=== PATIENT | female | born 1940 | race Two or more races ===

== ENCOUNTER 2017-08-29 20:04 | Inpatient (IN) | payer MEDICARE, OTHER ==
[~2017-08-29] VITALS: Ht 162.6 cm; Wt 62.1 kg
[2017-08-29] MEDS ORDERED: ESCI5TAB PO (20:33)
[2017-08-29] MEDS ORDERED: CLOP75TA2 PO (20:33)
[2017-08-29] MEDS ORDERED: VALS1TAB52 PO (20:33)
[2017-08-29] MEDS ORDERED: MULT1TAB73 PO (20:33)
[2017-08-29] MEDS ORDERED: ACET-868 PO (20:33)
[2017-08-29] MEDS ORDERED: AMLO10TA4 PO (20:33)
[2017-08-29] MEDS ORDERED: CILO100T PO (20:33)
[2017-08-29] MEDS ORDERED: ATOR10TA GT (20:33)
--- NOTE | 2017-08-29 20:39 | NUR ---
MOOKIE MINA AT BEDSIDE FOR EVAL.
--- NOTE | 2017-08-29 20:51 | NUR ---
RADIOLOGY AT BEDSIDE FOR CHEST XRAY.
[2017-08-29 21:08] LABS: BASOPHILS % (AUTO) 0.4 % (0.0-2.0); EOSINOPHILS # (AUTO) 0.1 /CMM (0.0-0.7); EOSINOPHILS % (AUTO) 0.9 % (0.0-6.0); HEMATOCRIT 42 % (33-45); HEMOGLOBIN 14.3 g/dL (11.5-14.8); LYMPHOCYTES # (AUTO) 1.6 /CMM (0.8-4.8); MEAN CORPUSCULAR HEMOGLOBIN 30 PG (26.0-33.0); MEAN CORPUSCULAR HGB CONC 34 g/dl (31.0-36.0); MEAN CORPUSCULAR VOLUME 89 fL (82-100); MONOCYTES # (AUTO) 0.3 /CMM (0.1-1.30); MONOCYTES % (AUTO) 4.2 % (2.0-12.0); NEUTROPHILS # (AUTO) 5.8 /CMM (1.8-8.9); NEUTROPHILS % (AUTO) 74.5 % (43.0-81.0); PLATELET COUNT (AUTO) 283 /CMM (150-450); RDW COEFFICIENT OF VARIATION 12.5 (11.5-15.0); RED BLOOD CELL COUNT(AUTO) 4.71 MIL/uL (4.0-5.2); WHITE BLOOD COUNT (AUTO) 7.8 K/uL (4.3-11.0)
[2017-08-29 21:18] LABS: CALCIUM, SERUM 9.5 mg/dL (8.5-10.1); CARBON DIOXIDE 28 mmol/L (21-32); CHLORIDE 97 mmol/L (98-107); CREATININE 0.7 mg/dL (0.6-1.3); GLUCOSE 135 mg/dL (74-106); SODIUM SERUM 135 mmol/L (136-145); UREA NITROGEN, BLOOD 18 mg/dL (7-18)
[2017-08-29 21:23] LABS: ALANINE AMINOTRANSFERASE 20 U/L (12-78); ALBUMIN 4.4 g/dL (3.4-5.0); ALKALINE PHOSPHATASE 107 U/L (46-116); ASPARTATE AMINOTRANSFERASE 13 U/L (15-37); BILIRUBIN,DIRECT 0.1 mg/dL (0.0-0.2); BILIRUBIN,TOTAL 0.3 mg/dL (0.2-1.0); TOTAL PROTEIN, SERUM 8.3 g/dL (6.4-8.2)
[2017-08-29] MEDS ORDERED: IV NS 0.9% 500 ML BAG IV ONE (21:30)
[2017-08-29] MEDS ORDERED: IV NS 0.9% 1,000 ML BAG IV ONE (21:30)
[2017-08-29] MEDS ORDERED: POTASSIUM CHLORIDE 20 MEQ TAB.PRT.SR PO ONE ×2 (21:30→21:44)
[2017-08-29 21:46] LABS: APPEARANCE,URINE Clear (CLEAR); BILIRUBIN,URINE Negative (NEGATIVE); BLOOD, URINE Negative Ery/uL (NEGATIVE); COLOR,URINE Yellow (YELLOW); KETONES,URINE Negative (NEGATIVE); LEUKOCYTE ESTERASE ,URINE Trace (NEGATIVE); NITRITE, URINE Negative (NEGATIVE); PROTEIN,URINE Negative (NEGATIVE); UGLUCOSE Negative (NEGATIVE); UROBILINOGEN,URINE 0.2 EU/dL (0.2)
[2017-08-29 21:59] LABS: BACTERIA,URINE Few /HPF (None Seen); SQUAMOUS EPITHELIAL CELL,UR Few /HPF (None Seen); WBC,URINE 0-2 /HPF (0-3)
--- NOTE | 2017-08-29 22:32 | NUR ---
RECEIVED REPORT FROM DAVION. PT 77YO FEMALE ZAMBIAN SPEAKER, CO GENERALIZED WEAKNESS FOR 5 DAYS. PT HAS RIGHT SIDED HEMIPLEGIA, FROM PAST CVA. PT HAS A HISTORY OF CVA, HTN AND DEPRESSION. POTASSIUM REPLACED IN ED. AWAITING TRANSFER.
--- NOTE | 2017-08-29 22:35 | NUR ---
REPORT GIVEN TO SREEKANTH. PT AWAITING TRANSFER TO FLOOR.
--- NOTE | 2017-08-29 22:50 | NUR ---
RN NOTES RECEIVED PT FROM THE ED. PT IS ALERT AND ORIENTED X4, GERMAN SPEAKING. PT ON RA, RESPIRATIONS ARE EVEN AND UNLABORED. IV ON L HAND, INTACT AND PATENT. PT HAS RIGHT SIDED WEAKNESS. SAFETY MEASURES ARE IN PLACE, CALL LIGHT WITHIN REACH. WILL CONTINUE TO MONITOR.
[2017-08-29 23:00] VITALS: BP 128/78
[2017-08-30] VITALS: BP 128/78
[2017-08-30] MEDS ORDERED: MAGNESIUM HYDROXIDE 30 ML UDC PO PRN
[2017-08-30] MEDS ORDERED: HYDROCODONE/APAP 5/325MG 1 EACH TABLET PO PRN
[2017-08-30] MEDS ORDERED: ACETAMINOPHEN 325 MG TABLET PO PRN
[2017-08-30] MEDS ORDERED: ONDANSETRON HCL/PF 4 MG/2 ML VIAL IVP PRN
[2017-08-30] MEDS ORDERED: MAG HYDROX/AL HYDROX/SIMETH 30 ML UDC PO PRN
[2017-08-30] MEDS ORDERED: ZOLPIDEM TARTRATE 5 MG TABLET PO PRN
[2017-08-30] MEDS: IV NS 0.9% 1,000 ML IV PRN ×2 (00:34→14:34)
[2017-08-30 01:56] VITALS: BP 128/78
--- NOTE | 2017-08-30 07:28 | NUR ---
RN CLOSING NOTES PT RESTING IN BED. NO APPARENT S/S OF PAIN OR DISTRESS. PT HAS WEAKNESS ON THE R SIDE FROM PAST CVA. PT TOLERATING IVF WELL NS 75ML/HR, IV SITE CLEAN AND INTACT. NO COMPLAINTS OF SOB. PT LAST VOID WAS 08/27. PT LUNGS SOUND DIMINISHED IN THE L/R UPPER LOBES. PT KEPT COMFORTABLE AND CALM, TURNED AND REPOSITIONED Q2HR. SAFETY PRECAUTIONS IN PLACE. CALL LIGHT WITHIN REACH, BE IN LOW, LOCKED POSITION, WITH 2XSIDE RAILS UP. WILL ENDORSE TO DAY SHIFT NURSE FOR CONTINUITY OF CARE.
--- NOTE | 2017-08-30 07:30 | NUR ---
MS RN AM NOTES PT IN BED, AAOX3, POLISH SPEAKING, LITTLE ARABIC, ON RA, NAD, NO OSB, RESPIRATION UNLABORED, NO APPARENT S/S OF PAIN OR DISTRESS. R SIDE WEAKNESS NOTED FROM HX OF CVA, NS 75ML/HR INFUSING WELL TO L HAND G20 SITE CLEAR, CCHO DIET, WILL ASSIST WITH TURNING AND REPOSITIONING, BED REST, ON DIAPERS, SAFETY PRECAUTIONS IN PLACE. CALL LIGHT WITHIN REACH, BED IN LOW/LOCKED SRX2, WILL CONT TO MONITOR.
[2017-08-30 07:55] LABS: BASOPHILS % (AUTO) 0.3 % (0.0-2.0); HEMATOCRIT 38 % (33-45); HEMOGLOBIN 13.1 g/dL (11.5-14.8); LYMPHOCYTES # (AUTO) 0.8 /CMM (0.8-4.8); LYMPHOCYTES % (AUTO) 11.9 % (20.0-44.0); MEAN CORPUSCULAR HEMOGLOBIN 30 PG (26.0-33.0); MEAN CORPUSCULAR HGB CONC 34 g/dl (31.0-36.0); MEAN CORPUSCULAR VOLUME 88 fL (82-100); MONOCYTES # (AUTO) 0.4 /CMM (0.1-1.30); MONOCYTES % (AUTO) 5.2 % (2.0-12.0); NEUTROPHILS # (AUTO) 5.8 /CMM (1.8-8.9); NEUTROPHILS % (AUTO) 82.6 % (43.0-81.0); PLATELET COUNT (AUTO) 252 /CMM (150-450); RDW COEFFICIENT OF VARIATION 13.9 (11.5-15.0); WHITE BLOOD COUNT (AUTO) 7.1 K/uL (4.3-11.0)
[2017-08-30 08:00] VITALS: BP 131/75
[2017-08-30 08:25] LABS: CALCIUM, SERUM 8.9 mg/dL (8.5-10.1); CARBON DIOXIDE 24 mmol/L (21-32); CHLORIDE 102 mmol/L (98-107); CREATININE 0.5 mg/dL (0.6-1.3); GLUCOSE 109 mg/dL (74-106); PHOSPHORUS 3.1 mg/dL (2.5-4.9); POTASSIUM 3.3 mmol/L (3.5-5.1); SODIUM SERUM 138 mmol/L (136-145); UREA NITROGEN, BLOOD 13 mg/dL (7-18)
[2017-08-30 08:35] LABS: CHOLESTEROL 153 mg/dL (<200); HDL CHOLESTEROL 75 mg/dL (40-60); LDL 74 mg/dL (0-99); THYROID STIMULATING HORMONE 0.382 uIU/mL (0.358-3.74); TRIGLYCERIDES 51 mg/dL (30-150)
[2017-08-30] MEDS: VALSARTAN 80 MG TABLET PO SCH (08:50)
[2017-08-30] MEDS: CLOPIDOGREL BISULFATE 75 MG TABLET PO SCH (08:50)
[2017-08-30] MEDS: ESCITALOPRAM OXALATE (10 MG) 10 MG TABLET PO SCH (08:50)
[2017-08-30] MEDS: CILOSTAZOL 100 MG TABLET PO SCH ×2 (08:50→17:07)
[2017-08-30] MEDS: AMLODIPINE BESYLATE 10 MG TABLET PO SCH (08:51)
[2017-08-30] MEDS: HYDROCHLOROTHIAZIDE 25 MG TABLET PO SCH (08:51)
[2017-08-30] MEDS: FAMOTIDINE (20 MG) 20 MG TABLET PO SCH (08:51)
[2017-08-30] MEDS ORDERED: POTASSIUM CHLORIDE 20 MEQ TAB.PRT.SR PO ONE (09:00)
--- NOTE | 2017-08-30 09:30 | NUR ---
MS RN NOTES DUE MEDS GIVEN.
[2017-08-30] MEDS: MULTIVITAMINS,THERAGRAN 1 UDTAB TABLET PO SCH (09:37)
[2017-08-30 16:00] VITALS: BP 117/65
[2017-08-30 18:00] VITALS: BP 117/65
--- NOTE | 2017-08-30 18:22 | NUR ---
MS RN CLOSING NOTES. PT IN BED, RESTING COMFORTABLY, AAOX3, [place] SPEAKING, LITTLE SOUTH AFRICAN, ON RA, NAD, NO SOB, RESPIRATION UNLABORED, NO APPARENT S/S OF PAIN OR DISTRESS. R SIDE WEAKNESS NOTED FROM HX OF CVA, NS 75ML/HR INFUSING WELL TO L HAND G20 SITE CLEAR, CCHO DIET, ASSISTED WITH TURNING AND REPOSITIONING Q 2HOURS, BED REST, ON DIAPERS, SAFETY PRECAUTIONS IN PLACE. CALL LIGHT WITHIN REACH, BED IN LOW/LOCKED SRX2, PM CARE DONE, ALL NEEDS MET, NO OTHER SIGNIFICANT CHANGE IN CONDITION. WILL ENDORSE TO NEXT SHIFT FOR ARNOLDO.
--- NOTE | 2017-08-30 18:38 | NUR ---
Patient resides at [facility] [phone]. She has hx of CVA with residual right-sided hemiparesis. Patient using power wheelchair for mobility, requires mod-max assist with adl's. Current plan is to dc back to [facility] upon discharge. Addendum: 08/30/17 at 1838 by GERBER BOYLE RN Amended: Links added.
--- NOTE | 2017-08-30 19:15 | NUR ---
MS RN OPENING NOTES: RECEIVED PT IN BED, RESTING COMFORTABLY. PT IS A/OX3 AND NICARAGUAN SPEAKING ONLY. PT CAN SPEAK AND UNDERSTAND A LITTLE PAKISTANI. NO SOB NOTED. RESPIRATIONS EVEN AND UNLABORED. NO APPARENT S/S OF PAIN OR DISTRESS. R SIDE WEAKNESS NOTED. PT HAS IV ON L HAND #20G AND IS BEING INFUSED WITH NS 75ML/HR. PT HAS SPLINT ON RIGHT ARM NOTED. CALL LIGHT WITHIN PT'S REACH. BED KEPT IN LOW/LOCKED POSITION AND SRX2 UP. WILL CONTINUE TO MONITOR PT.
[2017-08-30 20:00] VITALS: BP 124/57
[2017-08-30] MEDS: ATORVASTATIN 10 MG TABLET GT SCH (21:25)
--- NOTE | 2017-08-31 00:35 | NUR ---
MS RN NOTES: JILLIAN ON FLOOR AND GOT ORDER TO PUT IN CCHO AND CARDIAC CHOPPED DIET AND BOOST TWICE A DAY RECOMMENDED BY CONTACT CENTER PROFESSIONAL/DIETARY.
--- NOTE | 2017-08-31 06:51 | NUR ---
MS RN CLOSING NOTES: ALL NEEDS WERE ATTENDED AND ANTICIPATED FOR. PT IS IN BED, RESTING COMFORTABLY. PT IS A/OX3 AND CYMRO SPEAKING ONLY. PT CAN SPEAK AND UNDERSTAND A LITTLE MARSHALLESE. NO SOB NOTED. RESPIRATIONS EVEN AND UNLABORED. NO APPARENT S/S OF PAIN OR DISTRESS. PT HAS IV ON L HAND #20G AND IS BEING INFUSED WITH NS 75ML/HR. PT HAS SPLINT ON RIGHT ARM AND IN PLACE. CALL LIGHT WITHIN PT'S REACH. BED KEPT IN LOW/LOCKED POSITION AND SIDE RAILS X 2 UP. WILL ENDORSE TO AM NURSE FOR ARNOLDO.
--- NOTE | 2017-08-31 07:25 | NUR ---
MS RN OPENING NOTES RECEIVED PT IN BED AWAKE,ORIENTED X3, ON ROOM AIR, RESPIRATIONS EVEN, UNLABORED NO APPARENT DISTRESS,NO SOB NOTED.DUTCH SPEAKING.IV SITE INTACT LT HAND ON NS @ 70ML/HR..PT HAS SPLINT ON RT ARM SPLINT. BED LOCKED AND IN LOWEST POSITION. CALL LIGHT WITHIN REACH. SAFETY MEASURES RENDERED.WILL CONTINUE TO MONITOR.
[2017-08-31 08:00] VITALS: BP 146/85
[2017-08-31] MEDS ORDERED: BOOST PLUS FOOD-VANILLA 237 ML BOX PO SCH (08:00)
[2017-08-31] MEDS: ESCITALOPRAM OXALATE (10 MG) 10 MG TABLET PO SCH (08:49)
[2017-08-31] MEDS: AMLODIPINE BESYLATE 10 MG TABLET PO SCH (08:49)
[2017-08-31] MEDS: MULTIVITAMINS,THERAGRAN 1 UDTAB TABLET PO SCH (08:49)
[2017-08-31] MEDS: HYDROCHLOROTHIAZIDE 25 MG TABLET PO SCH (08:49)
[2017-08-31] MEDS: FAMOTIDINE (20 MG) 20 MG TABLET PO SCH (08:50)
[2017-08-31] MEDS: VALSARTAN 80 MG TABLET PO SCH (08:50)
[2017-08-31] MEDS: CILOSTAZOL 100 MG TABLET PO SCH ×2 (08:50→16:25)
[2017-08-31] MEDS: CLOPIDOGREL BISULFATE 75 MG TABLET PO SCH (08:50)
--- NOTE | 2017-08-31 09:30 | NUR ---
MS RN NOTES DUE MEDS GIVEN.
--- NOTE | 2017-08-31 10:30 | NUR ---
MS RN NOTES PT NOTED WITH IV LINE PULLED OUT. APPLIED PRESSURE DRESSING.NO BLEEDING NOTED. WILL CONTINUE TO MONITOR.CALL LIGHT WITHIN REACH
--- NOTE | 2017-08-31 13:20 | NUR ---
MS RN NOTES MIDLINE INSERTED EJ MIDLINE GAUGE 18.PT TOLERATED PROCEDURE WELL, NO S/SX OF PAIN OR DISCOMFORT NOTED. INSTRUCTION GIVEN REGARDING SAFETY MEASURES. ATTENDED ALL NEEDS WILL CONTINUE TO MONITOR ACCORDINGLY.
[2017-08-31 13:24] LABS: CALCIUM, SERUM 8.9 mg/dL (8.5-10.1); CARBON DIOXIDE 24 mmol/L (21-32); CHLORIDE 101 mmol/L (98-107); CREATININE 0.7 mg/dL (0.6-1.3); GLUCOSE 137 mg/dL (74-106); POTASSIUM 3.7 mmol/L (3.5-5.1); SODIUM SERUM 136 mmol/L (136-145); UREA NITROGEN, BLOOD 12 mg/dL (7-18)
[2017-08-31 16:00] VITALS: BP 137/75
[2017-08-31] MEDS: BOOST GLUCOSE CONTROL VANILLA 237 ML BOX PO SCH (16:25)
--- NOTE | 2017-08-31 18:13 | NUR ---
MS RN CLOSING NOTES PT IN BED ALERT, AWAKE,VERBALLY RESPONSIVE, ON ROOM AIR, NO SOB, NO APPARENT DISTRESS NOTED. IV SITE EJ MIDLINE,INTACT, PATENT, NO S/SX OF INFILTRATION NOTED. ON NS @ 75ML/HR. KEPT CLEAN AND COMFORTABLE.CALL LIGHT WITHIN REACH, BED LOCKED AND IN LOWEST POSITION.SAFETY MEASURES IN PLACE. WILL CONTINUE TO MONITOR ACCORDINGLY.ATTENDED ALL NEEDS.
[2017-08-31] MEDS: IV NS 0.9% 1,000 ML IV PRN (18:55)
[2017-08-31 20:00] VITALS: BP 128/75
--- NOTE | 2017-08-31 20:00 | NUR ---
MS INFORMATION TECHNOLOGY ARCHITECT INITIAL NOTES PT SEEN IN BED LYING DOWN IN BED WITH EYES CLOSED BUT AROUSES TO TOUCH AND TO HER NAME. SPEAK ETHIOPIAN ONLY BUT UNDERSTOOD SIMPLE SWEDISH. IVF INFUSING NS AT 75ML/HR ON HER LEFT UPPER ARM MIDLINE . NO REDNESS NOTED. AWARE WHERE SHE AT AND ENCOURAGE HER TO USED THE CALL LIGHT IF SHE NEEDS SOME HELPED. WILL CONTINUE TO MONITOR.
[2017-08-31] MEDS: ATORVASTATIN 10 MG TABLET GT SCH (21:27)
--- NOTE | 2017-08-31 22:03 | NUR ---
MS WILFRIDO NOTES PT CALLED AND ASKING MEDICINE TO HELP HER TO SLEEP. AMBIEN 5 MG PO GIVEN ORDERED. SAFETY PRECAUTION APPLIED . KEPT HER WARM AND COMFORTABLE AT ALL TIMES. WILL CONTINUE TO MONITOR. PLACE CALL LIGHT AT REACH.
--- NOTE | 2017-08-31 23:00 | NUR ---
VETERINARY NURSE RE-ASSESS NOTES PT SLEEPING COMFORTABLY IN BED WITHOUT ANY ACUTE DISTRESS NOTED. IVF STILL INFUSING. KEPT HER WARM AND COMFORTABLE AT ALL TIMES. WILL CONTINUE TO MONITOR. PLACE CALL LIGHT AT REACH.
--- NOTE | 2017-09-01 03:45 | NUR ---
HIDE DYER/NOTES REMAINS SLEEPING COMFORTABLY IN BED WITHOUT ANY ACUTE DISTRESS NOTED. WILL CONTINUE TO MONITOR.
--- NOTE | 2017-09-01 07:30 | NUR ---
MS GRADUATE TEACHING ASSISTANT CLOSING NOTES' PT BACK TO REST AFTER MORNING CARE DONE. IVF STILL INFUSING ON HER LEFT UPPER ARM MIDLINE. , STABLE VITOR THE NIGHT AND SLEPT WELL AFTER AMBIEN GIVEN LAST NIGHT. KEPT HER WARM AND COMFORTABLE AT ALL TIMES. SAFETY PRECAUTION IMPLEMENTED AND OBSERVED. PLACE CALL LIGHT AT REACH. ENDORSE TO AM NURSE FOR CONTINUITY OF CARE.
[2017-09-01 07:49] LABS: CALCIUM, SERUM 8.9 mg/dL (8.5-10.1); CARBON DIOXIDE 26 mmol/L (21-32); CHLORIDE 101 mmol/L (98-107); CREATININE 0.6 mg/dL (0.6-1.3); GLUCOSE 106 mg/dL (74-106); PHOSPHORUS 3.1 mg/dL (2.5-4.9); SODIUM SERUM 136 mmol/L (136-145); UREA NITROGEN, BLOOD 12 mg/dL (7-18)
[2017-09-01 08:00] VITALS: BP 133/76
[2017-09-01 08:03] LABS: BASOPHILS % (AUTO) 0.4 % (0.0-2.0); EOSINOPHILS # (AUTO) 0.1 /CMM (0.0-0.7); EOSINOPHILS % (AUTO) 1.7 % (0.0-6.0); HEMATOCRIT 40 % (33-45); HEMOGLOBIN 13.6 g/dL (11.5-14.8); LYMPHOCYTES # (AUTO) 0.9 /CMM (0.8-4.8); LYMPHOCYTES % (AUTO) 15.4 % (20.0-44.0); MEAN CORPUSCULAR HEMOGLOBIN 30 PG (26.0-33.0); MEAN CORPUSCULAR HGB CONC 34 g/dl (31.0-36.0); MEAN CORPUSCULAR VOLUME 90 fL (82-100); MONOCYTES # (AUTO) 0.3 /CMM (0.1-1.30); MONOCYTES % (AUTO) 4.9 % (2.0-12.0); NEUTROPHILS # (AUTO) 4.6 /CMM (1.8-8.9); NEUTROPHILS % (AUTO) 77.6 % (43.0-81.0); PLATELET COUNT (AUTO) 244 /CMM (150-450); RDW COEFFICIENT OF VARIATION 13.8 (11.5-15.0); RED BLOOD CELL COUNT(AUTO) 4.51 MIL/uL (4.0-5.2); WHITE BLOOD COUNT (AUTO) 5.9 K/uL (4.3-11.0)
[2017-09-01] MEDS: BOOST GLUCOSE CONTROL VANILLA 237 ML BOX PO SCH (08:18)
[2017-09-01] MEDS: FAMOTIDINE (20 MG) 20 MG TABLET PO SCH (08:19)
[2017-09-01] MEDS: MULTIVITAMINS,THERAGRAN 1 UDTAB TABLET PO SCH (08:19)
[2017-09-01] MEDS: VALSARTAN 80 MG TABLET PO SCH (08:19)
[2017-09-01] MEDS: AMLODIPINE BESYLATE 10 MG TABLET PO SCH (08:20)
[2017-09-01] MEDS: ESCITALOPRAM OXALATE (10 MG) 10 MG TABLET PO SCH (08:20)
[2017-09-01] MEDS: CILOSTAZOL 100 MG TABLET PO SCH (08:21)
[2017-09-01] MEDS: CLOPIDOGREL BISULFATE 75 MG TABLET PO SCH (08:21)
[2017-09-01 08:22] VITALS: BP 133/76
[2017-09-01] MEDS: HYDROCHLOROTHIAZIDE 25 MG TABLET PO SCH (08:22)
[2017-09-01] MEDS: POTASSIUM CHLORIDE 20 MEQ TAB.PRT.SR PO SCH ×2 (09:03→10:23)
--- NOTE | 2017-09-01 15:42 | NUR ---
M/S RN - Discharge Notes Patient is awake, A/O x 3, denies pain, not in any form of distress, stable for discharge back to SNF. Reviewed discharge instructions with RN Security Control Assessor at [facility] [phone] and she verbalized full understanding of all teachings including medication management. Midline removed on the EJ with catheter tip intact, no redness, no swelling noted at the IV site. Patient refused discharge photo to be taken on her sacral area, no skin breakdown noted. All belongings sent with the patient and she denies any missing items. Patient was offered flu and pna vaccine but refused. Shai Martínez at bedside aware of discharge back to SNF. Discharge papers given to ambulance crew and endorsed accordingly.
== END 2017-09-01 16:15 | DRG 884 ==
LOC: ER 20:06 → MED 21:23
PROVIDERS: ADMIT Nurse Practitioner Acute Care; ATTEND Nurse Practitioner Acute Care
PROC: 05H633Z Insertion of Infusion Device into Left Subclavian Vein, Percutaneous Approach (ICD-10-PCS; principal; 2017-08-31)
DX: R54 Age-related physical debility (principal); E11.51 Type 2 diabetes mellitus with diabetic peripheral angiopathy without gangrene; E11.65 Type 2 diabetes mellitus with hyperglycemia; I50.30 Unspecified diastolic (congestive) heart failure; F33.1 Major depressive disorder, recurrent, moderate; E87.1 Hypo-osmolality and hyponatremia; I69.351 Hemiplegia and hemiparesis following cerebral infarction affecting right dominant side; I11.0 Hypertensive heart disease with heart failure; E78.5 Hyperlipidemia, unspecified; E87.6 Hypokalemia; Z79.899 Other long term (current) drug therapy; R62.7 Adult failure to thrive; G89.29 Other chronic pain; K21.9 Gastro-esophageal reflux disease without esophagitis
CPT/HCPCS: 36415; 70450-TC; 71010-TC; 73564-TC; 80048-TC; 80061-TC; 80076-TC; 81000-TC; 83735-TC; 84100-TC; 84425; 84443-TC; 85025-TC; 87081-TC; 87086-TC; 97110-TC; 97530-TC; A4606; J7030; Z7610